=== PATIENT | female | born 1970 | race Caucasian/White ===

== ENCOUNTER 2022-03-26 23:15 | Inpatient (IN) | payer BC ==
[~2022-03-26] VITALS: Ht 170.2 cm; Wt 77.1 kg
[2022-03-26 23:22] VITALS: BP_SYST 132
[2022-03-27] MEDS ORDERED: cefTRIAXone 1 GM IVPB PREMIX 50 ML IV ONE (00:15)
[2022-03-27] MEDS ORDERED: NS 1000 ML IV.SOLN IV ONE (00:15)
[2022-03-27 00:59] LABS: BASOPHILS # (AUTO) 0.1 K/uL (0.0-0.2); BASOPHILS % (AUTO) 0.4 % (0.0-2.0); EOSINOPHILS # (AUTO) 0.2 K/uL (0.0-0.4); EOSINOPHILS % (AUTO) 1.1 % (0.0-4.0); HEMOGLOBIN 11.7 g/dL (12.0-16.0); LYMPHOCYTES % (AUTO) 6.7 % (20.5-51.5); MEAN CORPUSCULAR HEMOGLOBIN 27 pg (27-31); MEAN CORPUSCULAR HGB CONC 33 % (32-36); MEAN CORPUSCULAR VOLUME 81 fL (79.0-98.0); MONOCYTES # (AUTO) 0.8 K/uL (0.0-1.0); MONOCYTES % (AUTO) 5.4 % (1.7-9.3); NEUTROPHILS % (AUTO) 86.4 % (40.0-70.0); PLATELET COUNT (AUTO) 413 K/uL (130-430); RED BLOOD CELL COUNT(AUTO) 4.31 MIL/uL (4.2-6.2); RED CELL DISTRIBUTION WIDTH 13.6 % (9.0-15.0); WHITE BLOOD COUNT (AUTO) 15.1 K/uL (4.8-10.8)
[2022-03-27] MEDS ORDERED: FAMOTIDINE PF 20 MG/2 ML VIAL IVP ONE (01:00)
[2022-03-27] MEDS ORDERED: ACETAMINOPHEN 500 MG TABLET PO ONE (01:00)
[2022-03-27] MEDS ORDERED: MORPHINE 4 MG INJ. 4 MG/ML VIAL IVP ONE (01:15)
[2022-03-27 01:16] LABS: BILIRUBIN,URINE NEGATIVE (NEGATIVE); BLOOD, URINE NEGATIVE (NEGATIVE); CLARITY/URINE CLEAR (CLEAR); COLOR,URINE YELLOW (YELLOW); GLUCOSE,URINE TRACE (NEGATIVE); KETONES,URINE NEGATIVE (NEGATIVE); LEUKOCYTE ESTERASE ,URINE NEGATIVE (NEGATIVE); NITRITE, URINE NEGATIVE (NEGATIVE); PROTEIN URINE NEGATIVE (NEGATIVE); UROBILINOGEN,URINE 0.2 (0.2-1.0)
[2022-03-27 01:53] LABS: BACTERIA,URINE None Seen /HPF (None Seen); MUCUS,URINE None Seen /LPF (None Seen); RBC,URINE 0-3 /HPF (0-3); WBC,URINE NONE SEEN /HPF (0-3); YEAST,URINE None Seen /HPF (None Seen)
[2022-03-27] MEDS ORDERED: metroNIDAZOLE 500 mg/NS 100 ML IV ONE (02:00)
[2022-03-27 02:58] LABS: ANION GAP 11 (5-15); CALCIUM 9.4 mg/dL (8.4-11.0); CHLORIDE 101 mmol/L (98-107); CREATININE 1.01 mg/dL (0.55-1.30); GFR AFRICAN AMERICAN 74 mL/min (>90); GLUCOSE 130 mg/dL (70-99); UREA NITROGEN, BLOOD 15 mg/dL (8-21)
[2022-03-27 02:59] LABS: ALANINE AMINOTRANSFERASE 21 U/L (12-78); ALBUMIN 3.4 g/dL (3.4-4.8); ASPARTATE AMINOTRANSFERASE 16 U/L (10-37); LIPASE 85 U/L (73-393); TOTAL BILIRUBIN 0.4 mg/dL (0.0-1.0)
[2022-03-27] MEDS ORDERED: OSELTAMIVIR PHOSPHATE 75 MG CAPSULE PO ONE (03:15)
[2022-03-27] MEDS ORDERED: MESA500C PO (03:40)
[2022-03-27] MEDS ORDERED: *HEPARIN PER PHARMACY XX ONE (05:00)
[2022-03-27] MEDS ORDERED: HEPARIN SODIUM,PORCINE 5,000 UNITS/ML VIAL IVP ONE (05:00)
[2022-03-27] MEDS ORDERED: ASPIRIN 325 MG TABLET PO ONE (05:00)
[2022-03-27 07:24] LABS: INR 1.1 (0.8-1.2); PROTHROMBIN TIME 11.1 SECS (9.5-12.5)
[2022-03-27] MEDS: COLCHICINE 0.6 MG TABLET PO SCH ×3 (09:00→20:38)
[2022-03-27] MEDS ORDERED: COLCHICINE 0.6 MG TABLET PO SCH (09:00)
[2022-03-27] MEDS ORDERED: PANTOPRAZOLE SODIUM 40 MG TAB PO ONE (10:00)
[2022-03-27 15:00] VITALS: BP_SYST 110
[2022-03-27] MEDS ORDERED: NALOXONE HCL 0.4 MG/ML AMP (NARCAN) IVP PRN (17:30)
[2022-03-27] MEDS: IPRATROPIUM/ALBUTEROL SULFATE 3 ML AMPUL.NEB (DUONEB) INH PRN (17:53)
[2022-03-27 17:57] VITALS: BP_SYST 108
[2022-03-27] MEDS: HYDROcodone/ACETAMIN 5-325 MG TAB (NORCO/ VICODIN) PO PRN (18:25)
[2022-03-27] MEDS: NACL 0.9% 1,000 ML IV SCH ×2 (18:27→20:37)
[2022-03-27 20:00] VITALS: BP_SYST 110
[2022-03-27] MEDS: PANTOPRAZOLE SODIUM 40 MG TAB PO SCH (20:38)
[2022-03-28] MEDS: HYDROcodone/ACETAMIN 5-325 MG TAB (NORCO/ VICODIN) PO PRN (00:33)
[2022-03-28 00:40] VITALS: BP_SYST 115
[2022-03-28] MEDS: NACL 0.9% 1,000 ML IV SCH ×2 (06:00→16:36)
[2022-03-28 06:59] LABS: CALCIUM 8.1 mg/dL (8.4-11.0); CREATININE 0.81 mg/dL (0.55-1.30)
[2022-03-28 07:07] LABS: ALBUMIN 2.4 g/dL (3.4-4.8); TOTAL BILIRUBIN 0.3 mg/dL (0.0-1.0)
[2022-03-28 07:10] LABS: BASOPHILS # (AUTO) 0.1 K/uL (0.0-0.2); BASOPHILS % (AUTO) 0.4 % (0.0-2.0); EOSINOPHILS # (AUTO) 0.9 K/uL (0.0-0.4); EOSINOPHILS % (AUTO) 6.4 % (0.0-4.0); HEMATOCRIT 32.5 % (36-48); HEMOGLOBIN 10.9 g/dL (12.0-16.0); LYMPHOCYTES # (AUTO) 1.8 K/uL (1.0-5.5); LYMPHOCYTES % (AUTO) 12.8 % (20.5-51.5); MEAN CORPUSCULAR HEMOGLOBIN 27 pg (27-31); MEAN CORPUSCULAR HGB CONC 34 % (32-36); MEAN CORPUSCULAR VOLUME 82 fL (79.0-98.0); MONOCYTES # (AUTO) 0.9 K/uL (0.0-1.0); MONOCYTES % (AUTO) 6.1 % (1.7-9.3); NEUTROPHILS # (AUTO) 10.4 K/uL (1.8-7.7); NEUTROPHILS % (AUTO) 74.3 % (40.0-70.0); PLATELET COUNT (AUTO) 388 K/uL (130-430); RED BLOOD CELL COUNT(AUTO) 3.97 MIL/uL (4.2-6.2)
[2022-03-28 08:00] VITALS: BP_SYST 112
[2022-03-28] MEDS: PANTOPRAZOLE SODIUM 40 MG TAB PO SCH ×2 (09:27→20:41)
[2022-03-28] MEDS: COLCHICINE 0.6 MG TABLET PO SCH ×3 (09:27→20:41)
[2022-03-28] MEDS: IPRATROPIUM/ALBUTEROL SULFATE 3 ML AMPUL.NEB (DUONEB) INH PRN (09:48)
[2022-03-28 12:00] VITALS: BP_SYST 112
[2022-03-28] MEDS ORDERED: ACETAMINOPHEN 325 MG TABLET PO PRN (13:15)
[2022-03-28 16:00] VITALS: BP_SYST 118
[2022-03-28 20:00] VITALS: BP_SYST 131
[2022-03-29 00:44] VITALS: BP_SYST 108
[2022-03-29] MEDS: NACL 0.9% 1,000 ML IV SCH ×2 (02:03→12:00)
[2022-03-29 08:00] VITALS: BP_SYST 112
[2022-03-29] MEDS ORDERED: REGADENOSON 0.4 MG/5 ML SYRINGE IVP ONE (09:00)
[2022-03-29] MEDS: COLCHICINE 0.6 MG TABLET PO SCH ×2 (09:00→16:28)
[2022-03-29] MEDS: PANTOPRAZOLE SODIUM 40 MG TAB PO SCH (09:00)
[2022-03-29 12:00] VITALS: BP_SYST 114
[2022-03-29] MEDS ORDERED: PRO40 PO (16:03)
[2022-03-29 17:14] VITALS: BP_SYST 112
== END 2022-03-29 17:49 | disposition home or self-care (01) | DRG 445 ==
LOC: SED 23:15 → STU 03-27 06:12
PROVIDERS: ADMIT Internal Medicine; ATTEND Internal Medicine
DX: K80.00 Calculus of gallbladder with acute cholecystitis without obstruction (principal); I24.8 Other forms of acute ischemic heart disease; B34.9 Viral infection, unspecified; I51.4 Myocarditis, unspecified; K58.9 Irritable bowel syndrome, unspecified; Z20.822 Contact with and (suspected) exposure to COVID-19
CPT/HCPCS: 36415; 71045; 71260-TC; 76376; 76700-TC; 78226; 80053; 80061; 81000; 83605; 83690; 83735; 83880; 84484; 85025; 85610-TC; 85651-TC; 85730-TC; 86140; 87040; 87086; 93005; 93017; 93306; 94640; 94760; 99291; A9500; A9537; G0378; G9035; J0696; J2270; J2785; J3490; J7030; Q9967